=== PATIENT | male | born 1960 | race Caucasian/White ===

== ENCOUNTER → 2021-04-21 13:09 | Outpatient (CLI) | payer OTHER, SELFPAY ==
--- NOTE | 2021-04-21 13:10 | DI.MRI.S_ITS ---
/PROCEDURE: MR PELIS WO/W CON INDICATIONS: Rising PSA and unfavorable % free PSA TECHNIQUE: Coronal HASTE, axial T1 FSE with fat saturation, 3-plane nonbreath-hold T2 FSE. After the administration of contrast, dynamic axial, delayed axial and coronal VIBE or 2-D FLASH with fat saturation through the pelvis. Optional diffusion weighted imaging and ADC may be performed. COMPARISON: None. FINDINGS: Image quality: Diagnostic. Prostate: Gland size is 3.9 x 3.3 x 3.0 cm; ellipsoid gland volume is 20 mL. No discrete suspicious prostatic mass lesions identified. No definite abnormal prostatic enhancement or restricted diffusion. Genitourinary system: Bladder wall thickness is normal. Distal ureters are non distended. Bowel and peritoneum: No pathologic free pelvic fluid. Visualized bowel loops are normal in caliber. There is colonic diverticulosis in the visualized sigmoid colon. Nodes and vessels: No pelvic or inguinal adenopathy by size criteria. Iliac vessels are normal in caliber. Soft tissues: No inguinal hernias. Bones: Marrow demonstrates normal overall signal without suspicious osseous lesions. There is moderate facet arthropathy within the visualized lower lumbar spine. IMPRESSION: 1. No discrete suspicious prostatic mass lesion identified. 2. Prostate is normal in size. Dictated by: Blake Gallegos M.D. on 04/21/2021 at 14:40 Approved by: Blake Gallegos M.D. on 04/21/2021 at 15:06
== END ==
PROVIDERS: PCP Physician Assistant Medical; Referring Provider Urology; Visit Provider Urology
DX: R97.20 Elevated prostate specific antigen [PSA] (principal); N42.9 Disorder of prostate, unspecified
CPT/HCPCS: 72197